=== PATIENT | female | born 1965 | race Native Hawaiian/Other Pacific Islander ===

== ENCOUNTER → 2016-06-18 | Outpatient (CLI) | payer OTHER ==
--- NOTE | 2016-06-18 18:00 | MR ---
EXAMINATION TYPE: MR shoulder RT wo con DATE OF EXAM: 06/18/2016 5:24 PM COMPARISON: Plain film 03 June 2016 HISTORY: Rt shoulder pain x 2 days TECHNIQUE: Multiplanar, multisequence imaging of the right shoulder is performed without contrast. FINDINGS: Rotator Cuff: Abnormal increased signal is present within the rotator cuff, partial full-thickness te ar is present, there is associated tendinosis, abnormal thickening of the tendon with increased signa l present. Hypertrophic change present in the acromioclavicular joint causing mass effect on the musc ulotendinous junction of supraspinatus Acromioclavicular Joint: Arthropathy as described Glenohumeral Joint: Intact Labrum: The labrum appears grossly intact given limitation of non-arthrogram study. Biceps Tendon: The long head of biceps is in normal location within bicipital groove. Bone marrow signal: Pseudocysts are present. There is a distal acromial spur Other: Fluid signal present in the subacromial subdeltoid bursa IMPRESSION: Correlate for impingement. Partial full-thickness tear of the rotator cuff tendon, there is no retrac tion
== END | disposition home or self-care (01) ==
LOC: RADMRIMAIN 16:27
PROVIDERS: ATTEND Orthopaedic Surgery
DX: M75.111 Incomplete rotator cuff tear or rupture of right shoulder, not specified as traumatic (principal)

== ENCOUNTER → 2016-08-03 | Outpatient (CLI) | payer OTHER ==
[2016-08-03 16:29] LABS: Basophils % (A) 1 %; CH 31.1; CHCM 33.6; Eosinophils # (A) 0.3 k/uL (0-0.7); Eosinophils % (A) 3 %; HCT 44.8 % (34.0-46.0); HDW 2.52; HGB 14.5 gm/dL (11.4-16.0); Luc # (Auto) 0.16; Luc % (Auto) 2; Lymphocytes # (A) 3.7 k/uL (1.0-4.8); Lymphocytes % (A) 39 %; MCHC 32.3 g/dL (31.0-37.0); MCV 92.9 fL (80.0-100.0); Mean Platelet Volume 6.8; Monocytes # (A) 0.4 k/uL (0-1.0); Monocytes % (A) 4 %; Neutrophils # (A) 4.9 k/uL (1.3-7.7); Neutrophils % (A) 51 %; RBC 4.82 m/uL (3.80-5.40); RDW 13.2 % (11.5-15.5); WBC 9.5 k/uL (3.8-10.6); WBC (Perox) 9.42
[2016-08-03 16:41] LABS: Potassium 4.4 mmol/L (3.5-5.1)
== END | disposition home or self-care (01) ==
LOC: LABPAT 16:00
PROVIDERS: ATTEND Orthopaedic Surgery
DX: Z01.812 Encounter for preprocedural laboratory examination (principal); M75.41 Impingement syndrome of right shoulder
CPT/HCPCS: 80051; 85025

== ENCOUNTER 2016-08-05 08:06 | Day surgery (SDC) | payer OTHER ==
[2016-08-02 13:32] VITALS: BMI 27.3
--- NOTE | 2016-08-04 20:36 | HP ---
DATE OF ADMISSION: 08/05/2016 Vi Matute is a 51-year-old patient seen with right shoulder pain. After having treatment options discussed, she elected to proceed with right shoulder arthroscopy. Consent was obtained. Past medical history is noncontributory. PAST SURGICAL HISTORY: Tubal ligation, laparoscopy. DAILY MEDICATIONS: Naprosyn. ALLERGIES: NONE REPORTED. SOCIAL HISTORY: Patient currently smokes cigarettes. PHYSICAL EVALUATION OF THE RIGHT SHOULDER: Flexion is 120 degrees. Abduction is 100 degrees. External rotation is 40 degrees with pain and weakness. Tenderness along the anterolateral acromion and rotator cuff insertion site. Impingement positive 90 degrees. Distal neurovascular exam intact. Radiographs of right shoulder reveal type II anterior acromion. MRI right shoulder reveals impingement with partial rotator cuff tear. IMPRESSION: Right shoulder impingement with rotator cuff tear. PLAN: Right shoulder arthroscopy with subacromial decompression, possible arthroscopic rotator cuff repair and debridement.
[~2016-08-05 08:06] MED LIST: DEXAMETHASONE SOD PHOSPHATE 10 MG/ML 1 ML VIAL IV ONE; HYDROmorphone 1 MG/ML 1 ML SYRINGE IVP PRN; LACTATED RINGERS 1,000 ML IV SCH; MIDAZOLAM 2 MG/2 ML VIAL IV PRN; ONDANSETRON 4 MG/2 ML VIAL IVP ONE; ceFAZolin 1,000 MG in DEXTROSE/WATER 1 50ML.BAG IV ONE
[2016-08-05] MEDS ORDERED: LIDOCAINE 1% 20 ML VIAL (10MG/ML) FOR IV START INTRADERMA ONE (08:28)
[2016-08-05] MEDS ORDERED: MIDAZOLAM 2 MG/2 ML VIAL IVP ONE ×3 (08:59→09:45)
[2016-08-05] MEDS ORDERED: fentaNYL (PF) 50 MCG/ML 2 ML AMP IVP ONE ×2 (08:59→09:45)
--- NOTE | 2016-08-05 09:17 | P.ONQ ---
Anesthesiology Proc Note - PNB - Peripheral Nerve Block Performed Right Interscalene Single Time Out Performed: Yes Indication: Acute Post-Operative Pain, Analgesia Specifically requested for management of pain by DrTerrell: Martín Underwood Sedation Type: Sedate with meaningful contact maintained Preparation: Sterile Prep Position: Supine Catheter: None Needle Types: Other (see comment) (stimuplex) Needle Size: 50mm (2") Needle Gauge: Other (see comment) (22) Technique: Ultrasound Injectate: Other (see comment) (15cc 0.5% ropivicaine 15cc 2% lidocaine) Adjunct: Epinephrine (see comment for dilution ratio) (1:200,000) Blood Aspirated: No Pain Paresthesia on Injection Noted: No Resistance on Injection: Normal Events: Uneventful and Well Tolerated
[2016-08-05] MEDS ORDERED: SUCCINYLCHOLINE CHLORIDE 100 MG/5 ML SYR IV ONE (09:47)
[2016-08-05] MEDS ORDERED: LIDOCAINE 1% INJ 10MG/ML (20 ML MDV) ONE (09:47)
[2016-08-05] MEDS ORDERED: fentaNYL (PF) 50 MCG/ML 2 ML AMP ONE (09:47)
[2016-08-05] MEDS ORDERED: LIDOCAINE 2%-EPI 1:100,000 20 ML VIAL ONE (09:47)
[2016-08-05] MEDS ORDERED: ROPIVACAINE 5 MG/ML 30 ML VIAL ONE (09:47)
[2016-08-05] MEDS ORDERED: MIDAZOLAM 2 MG/2 ML VIAL ONE (09:47)
[2016-08-05] MEDS ORDERED: PROPOFOL 10 MG/ML 20 ML VIAL IV ONE (09:47)
[2016-08-05] MEDS ORDERED: LACTATED RINGERS 1,000 ML IV ONE (10:58)
--- NOTE | 2016-08-05 12:06 | P.OP ---
Date of Procedure: 08/05/16 Preoperative Diagnosis: Right shoulder impingement Postoperative Diagnosis: 1. Right shoulder large rotator cuff tear 2. Right shoulder impingement 3. Right shoulder superficial labral tear Procedure(s) Performed: 1. Right shoulder arthroscopic rotator cuff repair 2. Right shoulder arthroscopic subacromial decompression 3. Right shoulder arthroscopic debridement labral tear Implants: 6-valeris peek anchors Anesthesia: GETA, regional (Shoulder block) Surgeon: Martín Underwood [employer] Instructor #1: Mario Barton Estimated Blood Loss (ml): 15 Pathology: none sent Condition: stable Disposition: PACU Indications for Procedure: 51-year-old patient seen with right shoulder pain. After having treatment options discussed, she elected post right shoulder arthroscopy. Operative Findings: See description of procedure Description of Procedure: Patient underwent a shoulder block by department of anesthesia. The patient was then taken to the operative suite. The patient underwent a general anesthetic by the department of anesthesia. The patient was placed into a lateral position and secured. There was appropriate padding of the bony prominence. Right shoulder was then prepped and draped in normal sterile orthopedic fashion. We placed the extremity in 10 pounds of longitudinal traction. A posterior incision was now made for a posterior working portal site. The trocar and cannula were inserted into the glenohumeral joint. Arthroscopy was initiated. Spinal needle was now inserted anteriorly, to ascertain the anterior working portal site. An incision was now made in that area, a trocar was inserted followed by a probe. There was some superficial tearing of the anterior/superior labrum. Biceps tendon was absent. Grade 1 chondral malacia of the glenoid. Humeral head was unremarkable. No loose bodies were identified. I debrided the labral tear down to stable tissue. The residual labrum was stable. Instruments were now removed from glenohumeral joint. Utilizing the posterior working portal site, the trocar and cannula were inserted into the subacromial space. Arthroscopy initiated. I made an incision 2 fingerbreadths lateral to the acromion. I introduced my trocar followed by my ArthroCare ablator. I now began ablating thick subacromial bursal tissue, which exposed the undersurface of the anterior acromion. This was diminished subacromial space. There was a very prominent anterior acromion. A motorized bur was introduced and a subacromial decompression was performed. I also excised some osteophytes off the inferior aspect of the distal clavicle. The AC joint was visualized and noted to mild to moderately arthritic. I did not think enough toward a Aureliano procedure. I turned my attention to the rotator cuff. There was a large tear measuring approximately 3 cm. There was an intrasubstance component involving the posterior aspect of the distal supraspinatus. I debrided the margins down to stable tissue. I abraded the footprint with a motorized bur. I repaired the intrasubstance posterior component with one single suture. I now created an additional portal site is of lateral acromion. I introduced 2 medial row anchors with 2 sutures each. I then passed all 8 limbs of suture through good bites of rotator cuff tendon. I noted posteriorly it appeared that we were going to have some excessive dog earring. I introduced 3 loop sutures to help stabilize that area. I then noted anteriorly there was noted be an issue with compression along the footprint we therefore introduced to loop sutures there as well. I now decided to introduce 1 additional loop suture posterior centrally. We now pulled down the medial row sutures crisscrossed them introduced 2 lateral anchors pulling the tendon over footprint nicely. I now introduced 2 additional anchors to pull down the posterior dogear and anterior dogear incorporating that with that central loop sutures well. These additional 2 anchors help compress the tendon along the footprint very nicely. All suture limbs were clipped. There was a good repair of this large rotator cuff tendon tear. There was good rotational stability. We injected 1 mL of Allogen intra-articular. Instruments were now removed from the portal sites. All portal sites were approximated with nylon suture. Sterile dressings were applied followed by a shoulder immobilizer. Lamont JACOME assisted with the procedure. The patient was awakened, transferred to a bed, and taken to recovery in stable condition.
[2016-08-05 12:14] VITALS: TEMP 97
[2016-08-05] MEDS ORDERED: ONDANSETRON 4 MG/2 ML VIAL IVP ONE (12:23)
[2016-08-05 12:59] VITALS: RESP 18
[2016-08-05 14:15] VITALS: BP 121/80; PULSE 86
[2016-08-05] MEDS ORDERED: HYDROcodone/APAP 7.5-325MG 1 EACH TAB PO ONE (15:40)
== END 2016-08-05 16:50 | disposition home or self-care (01) ==
LOC: OR 08:06
PROVIDERS: ATTEND Orthopaedic Surgery
DX: M75.111 Incomplete rotator cuff tear or rupture of right shoulder, not specified as traumatic (principal); S43.401A Unspecified sprain of right shoulder joint, initial encounter; X58.XXXA Exposure to other specified factors, initial encounter; M75.41 Impingement syndrome of right shoulder; M94.211 Chondromalacia, right shoulder; M25.711 Osteophyte, right shoulder; M19.011 Primary osteoarthritis, right shoulder; S46.211A Strain of muscle, fascia and tendon of other parts of biceps, right arm, initial encounter; J45.909 Unspecified asthma, uncomplicated; Z98.51 Tubal ligation status; Z79.1 Long term (current) use of non-steroidal anti-inflammatories (NSAID); F17.210 Nicotine dependence, cigarettes, uncomplicated
CPT/HCPCS: 64415; 29827; 29826; C1713 ×2; C1765; J2250; J1100; J2405; J2001; J3010; J0690; J2795; J0330; J2704

== ENCOUNTER → 2019-11-28 | Outpatient (CLI) | payer OTHER ==
--- NOTE | 2019-11-28 15:29 | CT ---
EXAMINATION TYPE: CT iac wo con DATE OF EXAM: 11/28/2019 COMPARISON: None HISTORY: Rt ear cholesteatoma CT DLP: 150mGycm Automated exposure control for dose reduction was used. FINDINGS: The external auditory canals are patent bilaterally. There is moderate opacification of the right-sided mastoid air cells with associated sclerosis. Left-sided mastoid air cells are well-aerat ed. There is soft tissue noted measuring 3.9 mm adjacent to the right ossicular chain suspicious for cholesteatoma. No left-sided soft tissue masses are seen. Mild erosive change of the right ossicular chain is difficult to exclude. Left ossicular chain appears unremarkable. The scutum is preserved osorio aterally. The cochlea and the semicircular canals are symmetric and unremarkable. Vestibular aquedu ct and internal carotid canal appear unremarkable. Temporomandibular joints are maintained bilateral ly. Air-fluid level left maxillary sinus. IMPRESSION: 1. Findings suspicious for right-sided cholesteatoma. 2. Moderate right-sided mastoiditis. 3. Air-fluid level left maxillary sinus may reflect acute sinusitis.
== END | disposition home or self-care (01) ==
LOC: RADCTMAIN 14:56
PROVIDERS: ATTEND Otolaryngology
DX: H70.91 Unspecified mastoiditis, right ear (principal)
CPT/HCPCS: 70480

== ENCOUNTER 2021-08-25 16:46 | Emergency (ER) | payer OTHER ==
[2021-08-25 19:26] LABS: Appearance,Urine Cloudy (Clear); Bilirubin,Urine Negative (Negative); Blood,Urine Trace (Negative); Color,Urine Yellow; Glucose,Urine (UA) Negative (Negative); Ketones,Urine 1+ (Negative); Leukocyte Esterase,Urine Negative (Negative); Mucus,Urine Rare /hpf; Nitrite,Urine Negative (Negative); PH, Urine 6.5 (5.0-8.0); Protein,Urine Trace (Negative); RBC,Urine 9 /hpf (0-5); Specific Gravity,Urine 1.027 (1.001-1.035); Squamous Epithelial Cell,Urine 9 /hpf (0-4); WBC,Urine 1 /hpf (0-5)
[2021-08-25 20:38] LABS: Basophils % (A) 0 %; Eosinophils # (A) 0.1 k/uL (0-0.7); Eosinophils % (A) 1 %; HCT 43.9 % (34.0-46.0); HGB 15.2 gm/dL (11.4-16.0); Lymphocytes # (A) 0.7 k/uL (1.0-4.8); Lymphocytes % (A) 6 %; MCH 32.2 pg (25.0-35.0); MCHC 34.7 g/dL (31.0-37.0); Monocytes # (A) 0.1 k/uL (0-1.0); Monocytes % (A) 1 %; Neutrophils # (A) 12.2 k/uL (1.3-7.7); Neutrophils % (A) 92 %; Platelet Count 350 k/uL (150-450); RBC 4.73 m/uL (3.80-5.40); RDW 13.2 % (11.5-15.5); WBC 13.2 k/uL (3.8-10.6)
[2021-08-25 20:52] LABS: ALT 21 U/L (4-34); AST 29 U/L (14-36); African American GFR (CKD) >90 (>60 ml/min/1.73 sqM); Albumin 5.1 g/dL (3.5-5.0); Alkaline Phosphatase 131 U/L (38-126); Anion Gap 10 mmol/L; Blood Urea Nitrogen 13 mg/dL (7-17); Carbon Dioxide 24 mmol/L (22-30); Chloride 105 mmol/L (98-107); Glucose 142 mg/dL (74-99); Non-African American GFR(CKD) >90 (>60 ml/min/1.73 sqM); Potassium 4.7 mmol/L (3.5-5.1); Sodium 139 mmol/L (137-145); Total Bilirubin 0.4 mg/dL (0.2-1.3); Total Protein 8.3 g/dL (6.3-8.2)
[2021-08-25] MEDS ORDERED: SODIUM CHLORIDE 0.9% 1,000 ML IV STA (21:34)
[2021-08-25] MEDS ORDERED: KETOROLAC 15 MG/ML 1 ML VIAL IVP STA (21:34)
[2021-08-25] MEDS ORDERED: ONDANSETRON 4 MG/2 ML VIAL IVP STA (21:34)
--- NOTE | 2021-08-25 21:43 | ED ---
General Adult HPI - General Chief complaint: Abdominal Pain Stated complaint: rt sided abd pain Time Seen by Provider: 08/25/21 21:31 Source: patient, RN notes reviewed Mode of arrival: wheelchair Limitations: no limitations - History of Present Illness Initial comments: 56-year-old female presents to the emergency Department with complaints of right lower quadrant abdominal pain that radiates to the right flank onset last night. Patient states she is nauseous and uncomfortable. Reports taking [place] and Motrin at home with no improvement. Has been urinating without difficulty. Denies fever, chills, cough, congestion, constipation, diarrhea, or appetite change. - Related Data Home Medications Medication Instructions Recorded Confirmed Cyanocobalamin (Vitamin B-12) 2,500 mcg PO DAILY 08/02/16 08/25/21 [Vitamin B-12] Echinacea 400 mg PO DAILY 08/02/16 08/25/21 Meclizine HCl 25 mg PO BID PRN 08/25/21 08/25/21 Previous Rx's Medication Instructions Recorded HYDROcodone/APAP 5-325MG [[place] 5] 1 each PO Q6HR PRN #12 tab 08/26/21 Ketorolac [Toradol] 10 mg PO Q8HR PRN #15 tab 08/26/21 Allergies Allergy/AdvReac Type Severity Reaction Status Date / Time No Known Allergies Allergy Verified 08/25/21 23:29 Review of Systems ROS Statement: Those systems with pertinent positive or pertinent negative responses have been documented in the HPI. ROS Other: All systems not noted in ROS Statement are negative. Past Medical History Past Medical History: Musculoskeletal Disorder Additional Past Medical History / Comment(s): RT SHOULDER TORN ROTATOR CUFF History of Any Multi-Drug Resistant Organisms: None Reported Past Surgical History: Ear Surgery, Tubal Ligation Additional Past Surgical History / Comment(s): Ear surgery with titanium implants Past Anesthesia/Blood Transfusion Reactions: Motion Sickness Past Psychological History: No Psychological Hx Reported Smoking Status: Current every day smoker Past Alcohol Use History: Occasional Past Drug Use History: None Reported - Past Family History Father Sister(s) Family Medical History: Cancer General Exam Limitations: no limitations (Well-developed, well-nourished female in no acute distress. Initial temperature 99.0, pulse 78, respirations 20, blood pressure 150/81, pulse ox 98% on room air.) General appearance: alert, in no apparent distress ENT exam: Present: normal exam, normal oropharynx Respiratory exam: Present: normal lung sounds bilaterally. Absent: respiratory distress, wheezes, rales, rhonchi, stridor Cardiovascular Exam: Present: regular rate, normal rhythm, normal heart sounds. Absent: systolic murmur, diastolic murmur, rubs, gallop, clicks GI/Abdominal exam: Present: soft, tenderness (RLQ), guarding (RLQ, suprapubic), rebound, normal bowel sounds. Absent: distended Expanded GI/Abdominal exam: Present: tenderness at [place]'s Point Back exam: Present: CVA tenderness (R) Neurological exam: Present: alert, oriented X3, CN II-XII intact Psychiatric exam: Present: normal affect, normal mood Skin exam: Present: warm, dry, intact, normal color. Absent: rash Course Vital Signs 08/25/21 08/25/21 18:36 23:37 Temperature 99 F 98.4 F Pulse Rate 78 96 Respiratory 20 16 Rate Blood Pressure 150/81 139/80 O2 Sat by Pulse 98 98 Oximetry Medical Decision Making - Medical Decision Making This is a 56 year old female who presents to the Emergency Department with complaints of right lower quadrant abdominal pain that radiates to the right fla nk. Upon exam, patient appears moderately uncomfortable and is guarding the right lower abdomen. Her pain is non-localized and is accompanied by mild intermittent nausea. Abdomen is soft with no bladder or bowel complaints. She is afebrile with stable vital signs. Given IV fluids, Toradol, and Dilaudid with improvement, though found Toradol to be more helpful than the Dilaudid for pain control Laboratory studies were reviewed. Mild leukocytosis present. Urinalysis unremarkable. CT of the abdomen and pelvis shows a large ovarian cyst. She will be discharged home to follow up with gynecology as soon as possible. Prescribed Toradol and [place] for pain. Return parameters discussed in detail. Patient verbalizes understanding and agrees with this plan. Attending: Carly. - Lab Data Result diagrams: 08/25/21 20:04 08/25/21 20:04 Lab Results 08/25/21 08/25/21 08/25/21 Range/Units 18:55 20:04 20:04 WBC 13.2 H (3.8-10.6) k/uL RBC 4.73 (3.80-5.40) m/uL Hgb 15.2 (11.4-16.0) gm/dL Hct 43.9 (34.0-46.0) % MCV 93.0 (80.0-100.0) fL MCH 32.2 (25.0-35.0) pg MCHC 34.7 (31.0-37.0) g/dL RDW 13.2 (11.5-15.5) % Plt Count 350 (150-450) k/uL MPV 7.0 Neutrophils % 92 % Lymphocytes % 6 % Monocytes % 1 % Eosinophils % 1 % Basophils % 0 % Neutrophils # 12.2 H (1.3-7.7) k/uL Lymphocytes # 0.7 L (1.0-4.8) k/uL Monocytes # 0.1 (0-1.0) k/uL Eosinophils # 0.1 (0-0.7) k/uL Basophils # 0.0 (0-0.2) k/uL Sodium 139 (137-145) mmol/L Potassium 4.7 (3.5-5.1) mmol/L Chloride 105 (98-107) mmol/L Carbon Dioxide 24 (22-30) mmol/L Anion Gap 10 mmol/L BUN 13 (7-17) mg/dL Creatinine 0.67 (0.52-1.04) mg/dL Est GFR (CKD-EPI)AfAm >90 (>60 ml/min/1.73 sqM) Est GFR (CKD-EPI)NonAf >90 (>60 ml/min/1.73 sqM) Glucose 142 H (74-99) mg/dL Calcium 10.0 (8.4-10.2) mg/dL Total Bilirubin 0.4 (0.2-1.3) mg/dL AST 29 (14-36) U/L ALT 21 (4-34) U/L Alkaline Phosphatase 131 H (38-126) U/L Total Protein 8.3 H (6.3-8.2) g/dL Albumin 5.1 H (3.5-5.0) g/dL Urine Color Yellow Urine Appearance Cloudy H (Clear) Urine pH 6.5 (5.0-8.0) Ur Specific [place] 1.027 (1.001-1.035) Urine Protein Trace H (Negative) Urine Glucose (UA) Negative (Negative) Urine Ketones 1+ H (Negative) Urine Blood Trace H (Negative) Urine Nitrite Negative (Negative) Urine Bilirubin Negative (Negative) Urine Urobilinogen 2.0 (<2.0) mg/dL Ur Leukocyte Esterase Negative (Negative) Urine RBC 9 H (0-5) /hpf Urine WBC 1 (0-5) /hpf Ur Squamous Epith Cells 9 H (0-4) /hpf Urine Mucus Rare H (None) /hpf - Radiology Data Radiology results: report reviewed, image reviewed CT of the abdomen and pelvis with contrast was obtained. Report was reviewed in its entirety. Impression per Dr. Saul is large cystic mass in the abdomen is likely ovarian cyst. The wall is predominantly thin, but there are some areas where wall thickness is up to 7mm. Follow-up recommended. Cholelithasis. Disposition Clinical Impression: Ovarian cyst, Abdominal pain Disposition: HOME SELF-CARE Condition: Stable Instructions (If sedation given, give patient instructions): Ovarian Cyst (ED) Additional Instructions: You are being prescribed Toradol for pain. This is an NSAID therefore should not be taken with ibuprofen/Motrin. May take [place] for more severe pain. Call the wooling machine operator's (Dr. Villeda) office in the morning to schedule a follow-up appointment. Explained that you were seen in the emergency department due to right lower quadrant abdominal pain and had a CT that showed a large right ovarian cyst. Let them know that you need to be seen for a follow-up appointment as soon as possible to discuss further evaluation and treatment. Return to the emergency department with any new, worsening, or concerning symptoms including onset of fever or worsening pain. Prescriptions: HYDROcodone/APAP 5-325MG [[place] 5] 1 each PO Q6HR PRN #12 tab PRN Reason: Pain Ketorolac [Toradol] 10 mg PO Q8HR PRN #15 tab PRN Reason: Pain Is patient prescribed a controlled substance at d/c from ED?: Yes When asked, does pt state using other controlled substances?: Yes If prescribed controlled substance>3 days was MAPS reviewed?: Prescribed <3 Days If opioid is for acute pain is fill amount 7 days or less?: Yes If Rx opioid, was Start Talking consent form obtained?: Yes Referrals: Brandi Gao MD [Primary Care Provider] - 1-2 days Monica Villeda DO [Doctor of Osteopathic Medicine] - 1-2 days Forms: Work/School Release Time of Disposition: 00:16
--- NOTE | 2021-08-25 22:31 | CT ---
EXAMINATION TYPE: CT abdomen pelvis w con DATE OF EXAM: 08/25/2021 COMPARISON: None HISTORY: RLQ abdominal pain. problems urinating today CT DLP: 857.4 mGycm Automated exposure control for dose reduction was used. CONTRAST: Performed with IV Contrast, patient injected with 100 mL of Isovue 300. Images obtained from the diaphragm to the floor of the pelvis with IV contrast. Lung bases are clear. No pleural effusion. Heart size is normal. No pericardial effusion. There is sm all hiatal hernia. Liver and spleen are intact. No pancreatic mass. There are calcified gallstones. Mild ice are not dil ated. There is no adrenal mass. Kidneys show satisfactory contrast opacification. There is no hydronephrosi s. Delayed images show normal renal excretion. Bladder distends smoothly. There is no retroperitoneal adenopathy. No inguinal hernia. No free fluid in the pelvis. There is a very large thin-walled cystic fluid collection filling the abdomen which measures 17 x 20 x 14 cm. Uterus is tilted towards the right side. This could be large ovarian cyst arising from the r ight ovary. There is no ascites or free air. No bowel obstruction. Appendix appears normal. Uterus is anteverted. Uterus appears normal. Lumbar vertebra. Intact. There is narrowing of L4-5 and L5-S1 disc spaces. No compression fracture. Bony pelvis is intact. Hip joints are intact. IMPRESSION: Large cystic mass in the abdomen is likely ovarian cyst. The wall is predominantly thin but there are some areas where wall thickness is up to 7 mm. Follow-up recommended. Cholelithiasis.
[2021-08-25] MEDS ORDERED: HYDROmorphone 0.5 MG/0.5 ML SYRINGE IVP STA (23:35)
[2021-08-25 23:38] VITALS: BP 139/80; PULSE 96; RESP 16; TEMP 98.4
[2021-08-26] MEDS ORDERED: KETOROLAC 15 MG/ML 1 ML VIAL IVP STA (00:22)
== END 2021-08-26 00:41 | disposition home or self-care (01) ==
LOC: EC 16:46
DX: N83.201 Unspecified ovarian cyst, right side (principal); F17.200 Nicotine dependence, unspecified, uncomplicated
CPT/HCPCS: 36415; 80053; 85025; 81001; 74177; 99284; 96374; 96375 ×2; 96376; 96361; J2405; J1885 ×2; J1170; Q9967